=== PATIENT | female | born 1990 | race Caucasian/White ===

== ENCOUNTER 2019-06-17 09:10 | Emergency (ER) | payer OTHER ==
[~2019-06-17] VITALS: Ht 154.9 cm; Wt 54.4 kg
[2019-06-17] MEDS ORDERED: SYNTHROID75 MCG (09:38)
[2019-06-17] MEDS ORDERED: DUI500 PO (15:53)
[2019-06-17] MEDS ORDERED: CONCEPT DHA CA1 EACH PO (15:54)
[2019-06-17] MEDS ORDERED: INTESTINEX680 M1 PO (15:54)
== END 2019-06-17 17:04 ==
LOC: ER 09:10
DX: O20.0 Threatened abortion (principal); Z3A.01 Less than 8 weeks gestation of pregnancy

== ENCOUNTER → 2019-09-19 | Outpatient (CLI) | payer OTHER ==
[~2019-09-19] MED LIST: CONCEPT DHA CA1 EACH PO; DUI500 PO; INTESTINEX680 M1 PO; SYNTHROID75 MCG
== END | disposition home or self-care (01) ==
LOC: PRENATAL 14:58
DX: O35.3XX0 Maternal care for (suspected) damage to fetus from viral disease in mother, not applicable or unspecified (principal)